=== PATIENT | female | born 1985 | race Caucasian/White ===

== ENCOUNTER 2017-04-20 21:02 | Emergency (ER) | payer OTHER ==
[2017-04-20 21:09] VITALS: BMI 53.6
--- NOTE | 2017-04-20 21:36 | DR.GENAD ---
HPI - PCP Primary Care Physician: nfd - HPI Comment HPI Comment: COUGH IS PRODUCTIVE WITH GREEN SPUTUM. PERSISTENT COUGH CAUSING CHEST WALL PAIN. NO FEVER. HEADACHE AND POST NASAL DRIP PRESENT. NOW NOTICING WHITE PATCHES ON TONGUE AND MOUTH. - Complaint/Symptoms Chief Complaint Doctors Comments: COUGH, COLD CONGESTION TIMES 3 WEEKS. WHITE PATCHES IN MOUTH. Chief Complaint:: congested cough x 3-4 weeks; white patches in mouth; feels pressure in her chest; cough is productive with dark green sputum Self Treatment fo Chief Complaint: Theraflu; Dayquil - Nurses notes reviewed Nurses Notes Review: Yes - Source History Provided: Patient - Mode of Arrival Mode of Arrival: Ambulatory - Timing Onset of Chief Complaint: 04/20/17 Came on: Gradually - Duration Duration: Constant Duration: Days - Severity Severity: Moderate PMH - PMH Past Medical History: Yes Past Medical History: Hypertension Past Surgical History: Yes Past Surgical History Comment: scope of left knee; surgery left wrist - Family History History of Family Medical Conditions: No - Social History Type of Tobacco Use: None Alcohol Use: None Lives With: Family Lives Where: Home - infectious screening In the last 2 months have you had wt loss of >10#?: NO Have you had fever, night sweats or hemotysis?: No Have you traveled outside the country in the last 6 months?: No Isolation: Standard ROS - Review of Systems Constitutional: Weakness, Fatigue, Loss of Appetite. negative: Chills, Fever Eyes: negative: Eye Pain, Discharge ENTM: Nose Discharge, Nose Congestion, Mouth Pain (WHITE PACHES IN MOUTH AND PEDRITO.), Throat Pain. negative: Ear Pain Respiratoy: Productive Cough, Short of Breath. negative: Wheezing, Hemoptysis Cardiovascular: Chest Pain Gastrointestinal/Abdominal: No Symptoms Reported Genitourinary: No Symptoms Reported Neurological: Headache, Weakness, Dizziness Musculoskeletal: Muscle Pain Integumentary: No Symptoms Reported Hematologic/Lymphatic: No Symptoms Reported Endocrine: No Symptoms Reported All Other Systems: Reviewed and Negative PE - Vital Signs Vitals: Temperature 98.3 F Pulse Rate [Left Brachial] 100 Pulse Rate 112 Respiratory Rate 20 Blood Pressure [Left Arm] 150/90 Blood Pressure 172/86 O2 Sat by Pulse Oximetry 95 - General Limitations: No Limitations General Appearance: Alert - Head Head Exam: Normal Inspection - Eyes Eye exam: Normal Appearance - ENT ENT Exam: Normal External Ear Exam External Ear Exam: Normal External Inspection TM/Canal Exam: Bilateral Normal Nose Exam: Normal Nose Exam Mouth Exam: Normal Inspection Throat Exam: Tonsillar Erythema, Other (TONGUE AND MOUTH WITH WHITE PATCHES.). negative: Tonsillomegaly, Tonsillar Exudate - Neck Neck Exam: Trachea Midline - Chest Chest Inspection: Symmetric Chest Wall Rise - Respiratory Respiratory Exam: Normal Lung Sounds Bilat Respiratory Exam: Bilateral Wheezing, Bilateral Rhonchi, Lower Wheezing, Lower Rhonchi - Cardiovascular Cardiovascular Exam: Regular Rate, Normal Rhythm, Normal Heart Sounds - Abdominal Exam Abdominal Exam: Normal Bowel Sounds, Soft. negative: Tenderness - Extremities Extremities Exam: Normal Inspection - Back Back Exam: Normal Inspection - Neurologic Neurological Exam: Alert, Oriented X3, CN II-XII Intact, Normal Gait, Reflexes Normal. negative: Motor Sensory Deficit - Psychiatric Psychiatric Exam: Normal Affect, Normal Mood - Skin Skin Exam: Normal Color MDM - Additional Information Additional Information Obtained From: Family - Differential Diagnosis Differential Diagnosis: BRONCHITIS, PNEUMONIA, SINUSITIS, PHARYNGITIS, FLI Course - Treatment Treatment: SEE ORDERS. - Education/Counseling Education/Counseling: Patient, Family, Education Educated On: Diagnosis, Needs for Follow Up ROR - Labs Reviewed Laboratory Results Reviewed?: Yes Laboratory: Influenza Type A (PCR) Negative (NEGATIVE) 04/20/17 22:10 Influenza Type B (PCR) Negative (NEGATIVE) 04/20/17 22:10 S. pyogenes (TEM-PCR) Not detected (NOT DETECT) 04/20/17 22:10 - XRAY XRAY Interpreted by: Radiologist XRAY Findings: REPORT DISCUSS WITH PATIENT. - Diagnosis Discharge Problem: Bronchitis, Chest wall pain Sinusitis Qualifiers: Sinusitis location: unspecified location Chronicity: acute Recurrence: not specified as recurrent Qualified Code(s): J01.90 - Acute sinusitis, unspecified - Discharge Plan Disposition: HOME, SELF-CARE Condition: Stable Prescriptions: Amoxicillin [Amoxil 875 mg] 875 mg PO Q12H #20 tab Promethazine W/Codeine [PHENERGAN W/CODEINE 6.25mg/10mg (5mL) *] 5 ml PO Q6H PRN #120 ml PRN Reason: Cough - Follow ups/Referrals Follow ups/Referrals: NFD,None [Primary Care Provider] - 3 days - Instructions Instructions: Acute Bronchitis, [id number] Additional Instructions: RETURN TO ED IF WORSE.
--- NOTE | 2017-04-20 22:34 | RAD ---
CHEST RADIOGRAPHS PA AND LATERAL VIEWS CLINICAL HISTORY: 31-year-old female with congestion and cough for 3-4 weeks. COMPARISON: None. FINDINGS: The cardiopericardial silhouette is unremarkable with prominent perihilar lung markings an d peribronchial cuffing. There is no focal consolidation, pleural effusion or pneumothorax. The lungs are well inflated. Pulmonary vascularity is normal. Imaged osseous structures are intact. Soft tissu es are unremarkable. IMPRESSION: Prominent perihilar lung markings with peribronchial cuffing suggestive of bronchitis, correlate for acuity. Reported By:
[2017-04-20] MEDS ORDERED: AMOXIL CAP 500 MG PO ONE (23:54)
[2017-04-20] MEDS ORDERED: PHENERGAN W/CODEINE 6.25MG/10MG PO ONE (23:54)
[2017-04-21] MEDS ORDERED: AMOXIL CAP 500 MG PO ONE (00:04)
[2017-04-21] MEDS ORDERED: PHENERGAN W/CODEINE 6.25MG/10MG ONE ×2 (00:05→00:09)
[2017-04-21 00:29] VITALS: BP 150/90
== END 2017-04-21 00:30 | disposition home or self-care (01) ==
LOC: ER 21:02
DX: J40 Bronchitis, not specified as acute or chronic (principal); R07.89 Other chest pain; J01.80 Other acute sinusitis
CPT/HCPCS: 71046; 87502; 87651; 99283; 99284

== ENCOUNTER 2019-10-05 13:43 | Inpatient (IN) ==
[2019-10-05] MEDS ORDERED: D5 1/2 NS 1000 ML 1,000 ML IV ONE (13:50)
[2019-10-05] MEDS ORDERED: D5 1/2 NS 1000 ML 1,000 ML IV SCH (13:50)
[2019-10-05] MEDS ORDERED: PITOCIN ONE (13:50)
[2019-10-05] MEDS ORDERED: BETADINE SOLN ONE (13:50)
[2019-10-05] MEDS ORDERED: D5 1/2 NS 1L W PITOCIN 20 UNITS/L 20 UNITS/1,000 ML BAG IV ONE (13:51)
[2019-10-05] MEDS ORDERED: D5LR 1L W PITOCIN 10 UNITS/L 10 UNITS/1,000 ML BAG IV ONE (13:51)
[2019-10-05] MEDS ORDERED: MOTRIN TAB 800 MG PO PRN (14:56)
[2019-10-05] MEDS ORDERED: PHENERGAN INJ 25 MG IM PRN (14:56)
[2019-10-05] MEDS ORDERED: D5 1/2 NS 1000 ML 1,000 ML with PITOCIN 20 UNITS IV SCH ×2 (15:00)
[2019-10-05 15:18] LABS: BASOPHILS # (AUTO) 0.1 X10^3/uL (0.0-0.1); BASOPHILS % (AUTO) 0.7 % (0.2-1.0); EOSINOPHILS # (AUTO) 0.1 x10^3/uL (0.0-0.2); EOSINOPHILS % (AUTO) 1.1 % (0.9-2.9); HEMATOCRIT 39.9 % (36.0-47.0); HEMOGLOBIN 13.2 g/dL (12.0-16.0); LYMPHOCYTES # (AUTO) 1.6 X10^3/uL (1.3-2.9); LYMPHOCYTES % (AUTO) 12.7 % (21.0-51.0); MEAN CORPUSCULAR HEMOGLOBIN 28.9 pg (27.0-34.0); MEAN CORPUSCULAR HGB CONC 33.1 g/dL (33.0-35.0); MEAN CORPUSCULAR VOLUME 87.2 fL (80.0-100.0); MEAN PLATELET VOLUME 10.4 fL (7.4-11.0); MONOCYTES # (AUTO) 0.8 x10^3/uL (0.3-0.8); NEUTROPHILS # (AUTO) 10.3 x10^3/uL (2.2-4.8); NEUTROPHILS % (AUTO) 79.5 % (42.0-75.0); PLATELET COUNT 171 X10^3/uL (150.0-450.0); RED BLOOD COUNT 4.58 X10^6/uL (3.5-5.4); RED CELL DISTRIBUTION WIDTH 12.5 % (11.6-16.5)
[2019-10-05 15:27] LABS: BILIRUBIN,URINE 1+ (NEGATIVE); BLOOD/HEMOGLOBIN,URINE 5+ (NEGATIVE); GLUCOSE, URINE NEGATIVE (NEGATIVE); KETONES,URINE 1+ (NEGATIVE); LEUKOCYTE ESTERASE ,URINE 1+ (NEGATIVE); NITRITES,URINE NEGATIVE (NEGATIVE); PROTEIN,URINE 2+ (NEGATIVE); UROBILINOGEN,URINE 2+ (NORMAL)
[2019-10-05] MEDS ORDERED: ADACEL or BOOSTRIX TDaP VACCINE IM ONE (15:31)
[2019-10-05] MEDS ORDERED: MILK OF MAGNESIA PO PRN (15:31)
[2019-10-05] MEDS ORDERED: DERMOPLAST PAIN RELIEF SPRAY TOP PRN (15:31)
[2019-10-05] MEDS ORDERED: AMBIEN PO PRN (15:31)
[2019-10-05 15:33] LABS: APPEARANCE,URINE SLIGHTLY HAZY (CLEAR); COLOR,URINE DARK YELLOW (YELLOW); RBC,URINE TNTC /HPF (0-3)
[2019-10-05 15:34] LABS: BACTERIA,URINE TRACE /HPF (NEGATIVE); MUCUS,URINE MODERATE /HPF (NEGATIVE); SQUAMOUS EPITHELIAL CELL,UR MODERATE /HPF (NEGATIVE)
[2019-10-05 15:49] LABS: BLOOD UREA NITROGEN 12 mg/dL (7-18); CALCIUM 8.1 mg/dL (8.5-10.1); CARBON DIOXIDE 24.4 mmol/L (21-32); CHLORIDE 105 mmol/L (98-107); CREATININE 1.02 mg/dL (0.55-1.02); SODIUM 138 mmol/L (136-145); eGFR NON BLACK RACES > 60 (>60)
[2019-10-05] MEDS ORDERED: APRESOLINE TAB 25 MG ONE (16:29)
[2019-10-05] MEDS: APRESOLINE TAB 25 MG PO SCH ×2 (16:38→21:00)
[2019-10-05] MEDS: PROzac PO SCH (17:23)
[2019-10-05] MEDS: LOPRESSOR TAB 50 MG PO SCH (20:40)
[2019-10-05] MEDS: PEPCID TAB 20 MG PO SCH (20:40)
[2019-10-06 06:23] LABS: HEMATOCRIT 38.2 % (36.0-47.0); HEMOGLOBIN 12.8 g/dL (12.0-16.0)
[2019-10-06] MEDS: APRESOLINE TAB 25 MG PO SCH ×3 (06:32→21:00)
[2019-10-06] MEDS: PEPCID TAB 20 MG PO SCH ×2 (10:02→20:50)
[2019-10-06] MEDS: LOPRESSOR TAB 50 MG PO SCH ×2 (10:02→20:50)
[2019-10-06] MEDS: PRENATAL PLUS PO SCH (10:03)
[2019-10-06] MEDS: PROzac PO SCH (10:03)
[2019-10-07] MEDS: APRESOLINE TAB 25 MG PO SCH ×2 (05:17→15:05)
[2019-10-07] MEDS: PEPCID TAB 20 MG PO SCH (08:45)
[2019-10-07] MEDS: LOPRESSOR TAB 50 MG PO SCH (08:45)
[2019-10-07] MEDS: PROzac PO SCH (08:46)
[2019-10-07] MEDS: PRENATAL PLUS PO SCH (08:46)
[2019-10-07 16:50] VITALS: BP 173/85
== END 2019-10-07 16:10 | disposition home or self-care (01) | DRG 807 ==
LOC: LD 13:43 → MED/SURG 15:42
PROVIDERS: ADMIT Obstetrics & Gynecology Obstetrics; ATTEND Obstetrics & Gynecology Obstetrics
CPT/HCPCS: 36415; 59409; 80048; 80307; 81001; 85014; 85018; 85025; 86592; 86850; 86900; 86901; 90715; A4216; A4222; J2590; S0197; S5010

== ENCOUNTER 2021-12-27 15:38 | Inpatient (IN) ==
[2021-12-27] MEDS ORDERED: LOPRESSOR INJ 5 MG AMP IVP ONE (16:00)
[2021-12-27] MEDS ORDERED: LOPRESSOR INJ 5 MG AMP ONE (16:00)
[2021-12-27] MEDS ORDERED: LASIX IVP ONE ×2 (16:00)
[2021-12-27 16:03] LABS: ABG BASE EXCESS -3.4 mmol/L (-2.0-2.0); ABG HCO3 19.9 mmol/L (22-26)
[2021-12-27 16:13] LABS: BASOPHILS # (AUTO) 0.1 X10^3/uL (0.0-0.1); BASOPHILS % (AUTO) 1.2 % (0.2-1.0); EOSINOPHILS # (AUTO) 0.1 x10^3/uL (0.0-0.2); EOSINOPHILS % (AUTO) 0.7 % (0.9-2.9); HEMATOCRIT 31.2 % (36.0-47.0); HEMOGLOBIN 9.9 g/dL (12.0-16.0); LYMPHOCYTES # (AUTO) 2.2 X10^3/uL (1.3-2.9); LYMPHOCYTES % (AUTO) 21.3 % (21.0-51.0); MEAN CORPUSCULAR HEMOGLOBIN 21.8 pg (27.0-34.0); MEAN CORPUSCULAR HGB CONC 31.6 g/dL (33.0-35.0); MEAN CORPUSCULAR VOLUME 69.1 fL (80.0-100.0); MEAN PLATELET VOLUME 8.6 fL (7.4-11.0); MONOCYTES # (AUTO) 0.7 x10^3/uL (0.3-0.8); MONOCYTES % (AUTO) 7.3 % (0.0-13.0); NEUTROPHILS # (AUTO) 7.1 x10^3/uL (2.2-4.8); NEUTROPHILS % (AUTO) 69.5 % (42.0-75.0); RED BLOOD COUNT 4.51 X10^6/uL (3.5-5.4); RED CELL DISTRIBUTION WIDTH 20.7 % (11.6-16.5); WHITE BLOOD COUNT 10.2 X10^3/uL (3.6-10.0)
[2021-12-27 16:22] LABS: ANISOCYTOSIS 1+; MICROCYTOSIS 1+; PLATELET MORPHOLOGY COMMENT NORMAL (NORMAL)
--- NOTE | 2021-12-27 16:27 | DR.SOBA ---
HPI Time Seen Time Seen by Provider: 12/27/21 16:27 Primary Care Physician Primary Care Physician: ANGI HPI Comment HPI Comment: A 36 y/o female presenting via EMS with c/o worsening SOB today. She has no associated chest pain. SHe states that she is swollen and has not urinated much today. She had a PTCA about 2 weeks ago after an M.I. She was placed on ASA, Plavix, Eliquis, Metoprolol. But she has not filled these scripts yet but took 2 baby ASA this a.m. Her SOB ans ability to do things around the house has worsened since she came home from her M.I. care and placement of the heart stents. She is s/p AKA and has had DVT in the RLE leading to the amputation ultimately. Complaints Chief Complaint:: PT C/O SUDDEN ONSET OF SEVERE SHORTNESS OF BREATH THAT HAS PROGRESSIVELY WORSENED SINCE THIS MORNING AND IS ASSOCIATED WITH GENERALIZED SWELLING AND DIARRHEA. DENIES PAIN. COVID-19 Coronavirus risk:travel/contact w/high risk person: No Has patient experienced Coronavirus symptoms: No Reviewed Nurses Notes Reviewed: Yes Source History Provided: Patient Mode of Arrival Mode of Arrival: EMS Timing Onset of Chief Complaint: 12/27/21 Context Onset:: At Rest Currently on:: Neither Prehospital Care:: O2 Modifying Factors Worsens:: Lying Flat and Anxiety Improves:: Sitting Up Associated Signs and Symptoms Associated Signs and Symptoms: None PMH PMH Past Medical History: Yes Past Medical History: Coronary Artery Disease, Hypertension and [place] Past Medical History Comment: DVT Past Surgical History: Yes Surgical History: Angioplasty/Stents Past Surgical History Comment: RIGHT AKA Family History History of Family Medical Conditions: Yes Family Medical History: [place], Coronary Artery Disease and Hypertension Family Medical History Comment: CKD Social History Does patient currently use any type of tobacco product: Yes Have you used tobacco products in the last 12 months: Yes Type of Tobacco Use: Cigarettes Does any household member use tobacco: No Alcohol Use: None Do you use any recreational Drugs:: No Lives With: Family Lives Where: Home Travel Risk Coronavirus risk:travel/contact w/high risk person: No Has patient experienced Coronavirus symptoms: No Infectious screening In the last 2 months have you had wt loss of >10#?: NO Have you had fever, night sweats or hemotysis?: No Have you traveled outside the country in the last 6 months?: No Isolation: Standard ROS Review of Systems Constitutional: No Symptoms Reported Eyes: No Symptoms Reported ENTM: No Symptoms Reported Respiratoy: Short of Breath Cardiovascular: No Symptoms Reported Gastrointestinal/Abdominal: No Symptoms Reported Genitourinary: No Symptoms Reported Neurological: No Symptoms Reported Musculoskeletal: No Symptoms Reported Integumentary: No Symptoms Reported Hematologic/Lymphatic: No Symptoms Reported Endocrine: No Symptoms Reported Psychiatric: No Symptoms Reported All Other Systems: Reviewed and Negative PE Vital Signs Vitals: Temperature 97.9 F Pulse Rate 120 Respiratory Rate 33 Blood Pressure [Left Arm] 148/65 Blood Pressure 130/84 O2 Sat by Pulse Oximetry 100 General Limitations: No Limitations General Appearance: Alert, In No Apparent Distress, Anxious and Obese Head Head Exam: Normal Inspection, Atraumatic and Normocephalic Eyes Eye exam: Normal Appearance and EOMI ENT ENT Exam: Normal Exam, Normal Oropharynx, Normal External Ear Exam and Mucous Membranes Moist Neck Neck Exam: Normal Inspection, Full ROM and Trachea Midline Chest Chest Inspection: Normal Inspection and Symmetric Chest Wall Rise Respiratory Respiratory Exam: Normal Lung Sounds Bilat and Other (Tachypneic) Cardiovascular Cardiovascular Exam: Normal Rhythm, Tachycardia, Normal Heart Sounds, +S1 and +S2 Abdominal Exam Abdominal Exam: Normal Inspection, Normal Bowel Sounds and Soft Extremities Extremities Exam: Other (s/p Rt. AKA) Back Back Exam: Normal Inspection and Full ROM Neurologic Neurological Exam: Alert and Oriented X3 Psychiatric Psychiatric Exam: Normal Affect and Normal Mood Skin Skin Exam: Dry, Intact and Normal Color COURSE Treatment Treatment: Her test findings were reviewed with her. She had been given 40 mg of IV Lasix and u/o so far is > 2,000 ml. She feels beter now. I reviewed her presentation and findings with Dr. Moser, who agreed with admission here for management. Reevaluation 1st: Improved Consultation Consultation Comments: Name: CLIFF RUBIO [facility]#: [id number]: [id number]: [id number]: FLocation: EROrder Number(s): [id number](s):CHEST, 1 VIEW Ordering Physician: MOLLY VILLASEÑOR Primary Care: Zane WHITLEY Service Date: 12/27/21 Service Time: 1544 HISTORY Relevant Clinical Information chest pain STUDY CHEST, 1 VIEW COMPARISON December 19, 2021 FINDINGS The trachea is midline. The cardiac silhouette is unremarkable. The lungs demonstrate persistent pneumonia in the right mid lower lung zones similar to prior. The bony thorax is unremarkable. IMPRESSION Persistent multifocal right-sided pneumonia Electronically signed by: CAMRYN OGLESBY (Dec 27, 2021 17:19:23) Report Electronically signed: 12/27/21 1720 CC: Molly Villaseñor Education/Counseling Education/Counseling: Patient, Family, Education and Counseling Educated On: Treatment, Diagnosis, Prognosis and Needs for Follow Up ROR Labs Reviewed Laboratory Results Reviewed?: Yes Result Diagrams: 12/27/21 16:00 12/27/21 16:00 Laboratory: WBC 10.2 X10^3/uL (3.6-10.0) H 12/27/21 16:00 RBC 4.51 X10^6/uL (3.5-5.4) 12/27/21 16:00 Hgb 9.9 g/dL (12.0-16.0) L 12/27/21 16:00 Hct 31.2 % (36.0-47.0) L 12/27/21 16:00 MCV 69.1 fL (80.0-100.0) L 12/27/21 16:00 MCH 21.8 pg (27.0-34.0) L 12/27/21 16:00 MCHC 31.6 g/dL (33.0-35.0) L 12/27/21 16:00 RDW 20.7 % (11.6-16.5) H 12/27/21 16:00 Plt Count 347 X10^3/uL (150.0-450.0) 12/27/21 16:00 Plt Count Comment Adequate (ADEQUATE) 12/27/21 16:00 MPV 8.6 fL (7.4-11.0) 12/27/21 16:00 Neut % (Auto) 69.5 % (42.0-75.0) 12/27/21 16:00 Lymph % (Auto) 21.3 % (21.0-51.0) 12/27/21 16:00 [place] % (Auto) 7.3 % (0.0-13.0) 12/27/21 16:00 Eos % (Auto) 0.7 % (0.9-2.9) L 12/27/21 16:00 Baso % (Auto) 1.2 % (0.2-1.0) H 12/27/21 16:00 Neut # (Auto) 7.1 x10^3/uL (2.2-4.8) H 12/27/21 16:00 Lymph # (Auto) 2.2 X10^3/uL (1.3-2.9) 12/27/21 16:00 [place] # (Auto) 0.7 x10^3/uL (0.3-0.8) 12/27/21 16:00 Eos # (Auto) 0.1 x10^3/uL (0.0-0.2) 12/27/21 16:00 Baso # (Auto) 0.1 X10^3/uL (0.0-0.1) 12/27/21 16:00 Absolute Nucleated RBC 0.2 /100WBC 12/27/21 16:00 Total Counted Cancelled 12/27/21 16:00 Neutrophils % (Manual) Cancelled 12/27/21 16:00 Band Neutrophils % Cancelled 12/27/21 16:00 Lymphocytes % (Manual) Cancelled 12/27/21 16:00 Monocytes % (Manual) Cancelled 12/27/21 16:00 Eosinophils % (Manual) Cancelled 12/27/21 16:00 Basophils % (Manual) Cancelled 12/27/21 16:00 Metamyelocytes % Cancelled 12/27/21 16:00 Myelocytes % Cancelled 12/27/21 16:00 Promyelocytes % Cancelled 12/27/21 16:00 Plt Morphology Comment Normal (NORMAL) 12/27/21 16:00 RBC Morphology Abnormal (NORMAL) A 12/27/21 16:00 Anisocytosis 1+ A 12/27/21 16:00 Microcytosis 1+ A 12/27/21 16:00 D-Dimer 9.11 ug/ml (0.0-0.57) H 12/27/21 16:00 Sample Site Rbra 12/27/21 15:58 ABG pH 7.430 (7.35-7.45) 12/27/21 15:58 ABG pCO2 30.0 mmHg (35.0-45.0) L 12/27/21 15:58 ABG pO2 72.0 mmHg (80.0-100.0) L 12/27/21 15:58 ABG HCO3 19.9 mmol/L (22-26) L 12/27/21 15:58 ABG O2 Saturation 95.0 % (90-100) 12/27/21 15:58 ABG Base Excess -3.4 mmol/L (-2.0-2.0) L 12/27/21 15:58 Nav Test N/a 12/27/21 15:58 A-a Gradient 176.0 mmHg 12/27/21 15:58 FiO2 40.0 12/27/21 15:58 Blood Gas Comments Pt min well eb 12/27/21 15:58 Sodium 141 mmol/L (136-145) 12/27/21 16:00 Corrected Sodium 142 mmol/L (136-145) 12/27/21 16:00 Potassium 4.5 mmol/L (3.5-5.1) 12/27/21 16:00 Chloride 107 mmol/L (98-107) 12/27/21 16:00 Carbon Dioxide 24.3 mmol/L (21-32) 12/27/21 16:00 BUN 22 mg/dL (7-18) H 12/27/21 16:00 Creatinine 1.27 mg/dL (0.55-1.02) H 12/27/21 16:00 Est GFR (MDRD) Af Amer > 60 (>60) 12/27/21 16:00 Est GFR (MDRD) Non-Af 50 (>60) L 12/27/21 16:00 Glucose 121 mg/dL (65-99) H 12/27/21 16:00 Lactic Acid 4.2 mmol/L (0.4-2.0) H 12/27/21 16:24 Calcium 8.1 mg/dL (8.5-10.1) L 12/27/21 16:00 Corrected Calcium 9.1 mg/dL (8.5-10.1) 12/27/21 16:00 Total Bilirubin 0.90 mg/dL (0.2-1.0) 12/27/21 16:00 AST 31 Units/L (15-37) 12/27/21 16:00 ALT 29 Units/L (12-78) 12/27/21 16:00 Alkaline Phosphatase 101 Units/L (46-116) 12/27/21 16:00 Creatine Kinase 269 Units/L (26-192) H 12/27/21 16:24 Troponin I High Sens 914.2 ng/L (4.0-60.0) H* 12/27/21 16:00 B-Natriuretic Peptide 1530 pg/mL (0-79) H* 12/27/21 16:00 Total Protein 6.0 g/dL (6.4-8.2) L 12/27/21 16:00 Albumin 2.7 g/dL (3.4-5.0) L 12/27/21 16:00 Globulin 3.3 g/dL (2.5-4.5) 12/27/21 16:00 Albumin/Globulin Ratio 0.8 Ratio (1.1-2.1) L 12/27/21 16:00 Specimen Type Catherized urine 12/27/21 16:19 Urine Color Yellow (YELLOW) 12/27/21 16:19 Urine Appearance Hazy (CLEAR) 12/27/21 16:19 Urine pH 5.0 (5.0 - 8.0) 12/27/21 16:19 Ur Specific [place] 1.030 (1.000-1.030) 12/27/21 16:19 Urine Protein 4+ (NEGATIVE) 12/27/21 16:19 Urine Glucose (UA) Negative (NEGATIVE) 12/27/21 16:19 Urine Ketones 1+ (NEGATIVE) 12/27/21 16:19 Urine Blood 2+ (NEGATIVE) 12/27/21 16:19 Urine Nitrite Negative (NEGATIVE) 12/27/21 16:19 Urine Bilirubin Negative (NEGATIVE) 12/27/21 16:19 Urine Urobilinogen 1+ (NORMAL) 12/27/21 16:19 Ur Leukocyte Esterase Negative (NEGATIVE) 12/27/21 16:19 Urine RBC 0-2 /HPF (0-3) 12/27/21 16:19 Urine WBC 3-5 /HPF (0-5) 12/27/21 16:19 Ur Squamous Epith Cells Rare /HPF (NEGATIVE) 12/27/21 16:19 Urine Bacteria 1+ /HPF (NEGATIVE) 12/27/21 16:19 Hyaline Casts Rare /LPF (NEGATIVE) 12/27/21 16:19 Granular Casts Few /LPF (NEGATIVE) 12/27/21 16:19 Urine Mucus Moderate /HPF (NEGATIVE) 12/27/21 16:19 Ur Culture Indicated? No/not indicated 12/27/21 16:19 Urine Opiates Screen Negative (NEG=<300) 12/27/21 16:19 Urine Methadone Screen Negative (NEG=<300) 12/27/21 16:19 Ur Barbiturates Screen Negative (NEG=<200) 12/27/21 16:19 Ur Phencyclidine Scrn Negative (NEG=<25) 12/27/21 16:19 Ur Amphetamines Screen Positive (NEG=<1000) A 12/27/21 16:19 U Benzodiazepines Scrn Negative (NEG=<200) 12/27/21 16:19 Urine Cocaine Screen Negative (NEG=<300) 12/27/21 16:19 U Marijuana (THC) Screen Negative (NEG=<50) 12/27/21 16:19 XRAY XRAY Interpreted by: Self X-ray Results: CXR: Cardiomegaly with vascular congestion. Radiology report is pending. EKG Rate: 131 [place]: Normal Rhythm: ST and PVCs Block: None Hypertrophy: LAE and RVH Opioid Opioid Risk Tool Age ([place] if 16-45): Yes History of Preadolescent Sexual Abuse: No Total: 1 Total Score Risk Category: Low Risk Copyright: Saurabh JHA predicting aberrant behaviors Discharge Plan Diagnosis Discharge Problem: Decompensated heart failure, Lactic acid blood increased, Non compliance w medication regimen CAD (coronary artery disease) Qualifiers: Coronary Disease-Associated Artery/Lesion type: [place] artery [place] vs. transplanted heart: tribal heart Associated angina: without angina Qualified Code(s): I25.10 - Atherosclerotic heart disease of tribal coronary artery without angina pectoris ST elevation [place] (STEMI) Qualifiers: Involved coronary artery: unspecified coronary artery Qualified Code(s): I21.3 - ST elevation (STEMI) myocardial infarction of unspecified site Discharge Plan Patient Disposition: 09 ADMITTED INPATIENT Condition: Stable Health Concerns: Post Hospitalization: new medications and changes needed to prevent readmission or further decline. Pt educated and given instructions on all concerns. Plan of Treatment: Continue with present treatment and follow up plan. Pt is to keep follow up appointment as instructed and take medications as ordered. Orders to Discharge Patient Discharge Orders: Transfer (Routine); Ordered 12/27/21 Ordered By: MOLLY SOBOWADANG Follow ups/Referrals Follow ups/Referrals: NFD,None [Primary Care Provider] - 3 days
[2021-12-27 16:33] LABS: BILIRUBIN,URINE NEGATIVE (NEGATIVE); BLOOD/HEMOGLOBIN,URINE 2+ (NEGATIVE); GLUCOSE, URINE NEGATIVE (NEGATIVE); KETONES,URINE 1+ (NEGATIVE); LEUKOCYTE ESTERASE ,URINE NEGATIVE (NEGATIVE); NITRITES,URINE NEGATIVE (NEGATIVE); PROTEIN,URINE 4+ (NEGATIVE); UROBILINOGEN,URINE 1+ (NORMAL)
[2021-12-27 16:38] LABS: ALANINE AMINOTRANSFERASE 29 Units/L (12-78); ALBUMIN 2.7 g/dL (3.4-5.0); ALKALINE PHOSPHATASE 101 Units/L (46-116); ASPARTATE AMINO TRANSFERASE 31 Units/L (15-37); BLOOD UREA NITROGEN 22 mg/dL (7-18); CALCIUM 8.1 mg/dL (8.5-10.1); CARBON DIOXIDE 24.3 mmol/L (21-32); CHLORIDE 107 mmol/L (98-107); COR CA(FOR HYPOALB) 9.1 mg/dL (8.5-10.1); COR NA(FOR HYPERGLY) 142 mmol/L (136-145); CREATININE 1.27 mg/dL (0.55-1.02); SODIUM 141 mmol/L (136-145); eGFR NON BLACK RACES 50 (>60)
[2021-12-27] MEDS ORDERED: XOPENEX 1.25 MG/3 ML NEBULE NEB ONE ×2 (16:45)
[2021-12-27 16:48] LABS: APPEARANCE,URINE HAZY (CLEAR); BACTERIA,URINE 1+ /HPF (NEGATIVE); COLOR,URINE YELLOW (YELLOW); GRANULAR CASTS,URINE FEW /LPF (NEGATIVE); HYALINE CASTS, URINE RARE /LPF (NEGATIVE); RBC,URINE 0-2 /HPF (0-3); SQUAMOUS EPITHELIAL CELL,UR RARE /HPF (NEGATIVE)
[2021-12-27] MEDS ORDERED: NS 100 ML IV 100 ML ONE ×2 (16:51→18:21)
[2021-12-27] MEDS ORDERED: ATIVAN INJ 2 MG VIAL ONE (16:58)
[2021-12-27] MEDS ORDERED: ATIVAN INJ 2 MG VIAL IVP ONE (17:05)
--- NOTE | 2021-12-27 17:20 | RAD ---
HISTORYRelevant Clinical Information chest painSTUDYCHEST, 1 VIEWCOMPARISONOctober 2021FINDINGSThe trachea is midline. The cardiac silhouette is unremarkable. The lungs demonstrate persistent pneumonia in the right mid lower lung zones similar to prior. The bony thorax is unremarkable.IMPRESSIONPersistent multifocal right-sided pneumoniaElectronically signed by: CAMRYN OGLESBY (Dec 27, 2021 17:19:23)
[2021-12-27] MEDS ORDERED: ZOSYN VIAL 3.375 GRAMS 3.375 G in NS 100 ML IV 100 ML IV ONE (18:07)
--- NOTE | 2021-12-27 18:16 | CT ---
HISTORYelevated d-dimer, shortness of breath, tachycardia.brSTUDYCTA CHESTCOMPARISONNoneTECHNIQUEMultiple axial images of the chest were obtained from the thoracic inlet to the upper abdomen after the administration of IV contrast. 3D reconstructions utilizing axial MIPS imaging was performed and reviewed. Dose reduction techniques including Automated Exposure Control (AEC) and adjustment of mA and kV were utilized.FINDINGSThe mediastinum does not demonstrate significant pathological lymphadenopathy. There is no pericardial effusion observed. The thoracic aorta is normal in its contour without evidence for aneurysmal dilatation. The central pulmonary arterial system does not demonstrate central filling defects to suggest pulmonary emboli.Evaluation of the lung parenchyma demonstrates layering bilateral effusions right greater than left with ground-glass opacities throughout both lungs. The heart is mildly enlarged these findings may be on the basis of CHF although atypical pneumonia could give a similar appearance. Clinical correlation with be needed. No pulmonary nodule or mass can be identified. The bony thorax is unremarkable in its appearance . The visualized portions of the upper abdomen are grossly unremarkable .IMPRESSIONBilateral layering effusion with scattered ground-glass opacities throughout both lungs with mild cardiomegaly. These findings may be on the basis of CHF although atypical pneumonia could give a similar appearance. Clinical correlation will be needed. There is no evidence for pulmonary embolus.Electronically signed by: CAMRYN OGLESBY (Dec 27, 2021 18:14:54)
[2021-12-27] MEDS ORDERED: ZOSYN VIAL 3.375 GRAMS IV ONE (18:21)
[2021-12-27] MEDS: ZOSYN VIAL 3.375 GRAMS 3.375 G in NS 100 ML IV 100 ML IV SCH ×2 (21:11→21:18)
[2021-12-27] MEDS ORDERED: KLONOPIN TAB 0.5 MG PO PRN (21:20)
[2021-12-27 21:46] VITALS: BMI 50.8
[2021-12-27] MEDS: ELIQUIS PO SCH (22:05)
[2021-12-28] MEDS: LOPRESSOR TAB 25 MG PO SCH ×2 (00:14→09:39)
[2021-12-28] MEDS: ZOSYN VIAL 3.375 GRAMS 3.375 G in NS 100 ML IV 100 ML IV SCH (05:00)
[2021-12-28 05:01] LABS: BASOPHILS # (AUTO) 0.1 X10^3/uL (0.0-0.1); BASOPHILS % (AUTO) 0.9 % (0.2-1.0); EOSINOPHILS # (AUTO) 0.1 x10^3/uL (0.0-0.2); HEMATOCRIT 30.4 % (36.0-47.0); HEMOGLOBIN 9.3 g/dL (12.0-16.0); LYMPHOCYTES # (AUTO) 2.2 X10^3/uL (1.3-2.9); LYMPHOCYTES % (AUTO) 19.7 % (21.0-51.0); MEAN CORPUSCULAR HEMOGLOBIN 20.9 pg (27.0-34.0); MEAN CORPUSCULAR HGB CONC 30.7 g/dL (33.0-35.0); MEAN CORPUSCULAR VOLUME 68.2 fL (80.0-100.0); MEAN PLATELET VOLUME 9.2 fL (7.4-11.0); MONOCYTES % (AUTO) 8.8 % (0.0-13.0); NEUTROPHILS # (AUTO) 7.8 x10^3/uL (2.2-4.8); NEUTROPHILS % (AUTO) 69.6 % (42.0-75.0); RED BLOOD COUNT 4.45 X10^6/uL (3.5-5.4); RED CELL DISTRIBUTION WIDTH 20.3 % (11.6-16.5); WHITE BLOOD COUNT 11.2 X10^3/uL (3.6-10.0)
[2021-12-28] MEDS ORDERED: SALINE 3% 15 ML NEB TX ONE (05:07)
[2021-12-28 05:20] LABS: ANISOCYTOSIS 1+; HYPOCHROMASIA 2+; MICROCYTOSIS 1+; PLATELET MORPHOLOGY COMMENT NORMAL (NORMAL)
[2021-12-28 05:31] LABS: ALBUMIN 2.5 g/dL (3.4-5.0); CALCIUM 7.8 mg/dL (8.5-10.1); CARBON DIOXIDE 25.7 mmol/L (21-32); CREATININE 1.37 mg/dL (0.55-1.02); TOTAL PROTEIN 5.8 g/dL (6.4-8.2)
[2021-12-28] MEDS ORDERED: PLAVIX PO SCH (09:00)
[2021-12-28] MEDS ORDERED: XOPENEX 1.25 MG/3 ML NEBULE NEB PRN (09:00)
[2021-12-28] MEDS ORDERED: ASPIRIN EC 81 MG PO SCH (09:00)
[2021-12-28] MEDS ORDERED: PROTONIX TAB 40 MG PO SCH (09:00)
[2021-12-28] MEDS ORDERED: LASIX PO SCH (09:00)
[2021-12-28 09:30] LABS: INR 1.43 (0.8-1.3)
[2021-12-28] MEDS: ELIQUIS PO SCH (09:38)
[2021-12-28 10:57] VITALS: BP 158/88
--- NOTE | 2021-12-28 11:54 | DR.H&P ---
H&P - History & Physical for Day of: H&P Date: 12/27/21 - Chief Complaint Chief Complaint: SOB, CHEST TIGHTNESS - History of Present Illness History of Present Illness: PT IS 36 WF ER ADMISSION AFTER PRESENTING WITH CO CHEST TIGHTNESS AND SOB WITH INCREASED "WATER RETENTION" PT REPORTS PMH OF PCI X1 STENT PER DR WILSON AT [facility] IN [place]. PT ALSO HAS PMH OF DVTS AND WITH R AKA August AT [facility]. PT IS A SMOKER AND REPORTS NON COMPLIANCE WITH MEDICATION REGIMEN. PT ADMITTED FOR TREATMENT AND EVALUATION OF ACUTE ILLNESS. - Past Medical History Past Medical History: [place], Coronary Artery Disease, Hypertension Additional Medical History: DVT, OBESITY, ILLICIT DRUG USE - Past Surgical History Surgical History: Angioplasty/Stents, Ortho Surgery, Other - Family History Family Medical History: [place], Coronary Artery Disease, Hypertension - Social History Does patient currently use any type of tobacco product: Yes Have you used tobacco products in the last 12 months: Yes Type of Tobacco Use: Cigarettes Does any household member use tobacco: No Alcohol Use: None Drug Use: Methamphetamine, Marijuana - Medications Home Medications: No Known Drug Allergies Allergy (Unverified 04/20/17 21:04) - Review of Systems Constitutional: Malaise Eyes: No Symptoms Reported ENT: No Symptoms Reported Respiratory: Shortness of Breath Cardiovascular: Chest Pain, Edema Gastrointestinal: denies: Nausea, Vomiting, Diarrhea Genitourinary: No Symptoms Reported, Other (CURRENTLY ON MENSTRUAL CYCLE) Musculoskeletal: No Symptoms Reported Skin: No Symptoms Reported Neurological: No Symptoms Reported - Physical Exam Vital Signs: Temperature 98.3 F Pulse Rate 106 Respiratory Rate 22 Blood Pressure [Left Arm] 148/65 Blood Pressure 158/88 O2 Sat by Pulse Oximetry 96 Oriented: Normal Eyes: Normal Ear: Normal Nose: Normal Throat: Normal Respiratory: RML Diminished, RLL Diminished, LML Diminished, LLL Diminished Cardiovascular: Tachycardia, Edema : Normal Auscultation: Bowel Sounds: Normal Palpation: Normal Tenderness: Normal Skin: Normal Musculoskeletal: Right, Deformity (RAKA) Psychiatric: Anxiety Affect: Anxious Speech Pattern: Clear, Appropriate - Assessment/Plan (1) SOB (shortness of breath) Status: Acute Plan: ADMIT, SERIAL CE AND EKG. BP CONTROL AND CONTINUOUS CARDIAC MONITORING. PRAKASH CATH WITH STRICT I&OS. RESUME ELIQUIS, PLAVIX, STATIN AND METOPROLOL. CTA CHEST PERFORMED IN ER ON ADMISSION, IV LASIX. SUPPLEMENTAL O2 (2) Abnormal cardiac enzyme level Status: Acute (3) CAD (coronary artery disease) Qualifiers: Coronary Disease-Associated Artery/Lesion type: [place] artery [place] vs. transplanted heart: [place] heart Associated angina: without angina Qualified Code(s): I25.10 - Atherosclerotic heart disease of [place] coronary artery wi thout angina pectoris Status: Acute (4) CHF (congestive heart failure) Status: Acute (5) History of DVT (deep vein thrombosis) Status: Acute (6) Hypertension Status: Acute (7) Morbid obesity Status: Acute (8) Hyperlipidemia Status: Acute (9) Drug use Status: Acute (10) Lactic acid blood increased Status: Acute - Allergies Allergies/Adverse Reactions: Allergies Allergy/AdvReac Type Severity Reaction Status Date / Time No Known Drug Allergies Allergy Unverified 04/20/17 21:04
--- NOTE | 2021-12-28 13:07 | RAD ---
HISTORYDECOMMPENSATED CHFSTUDYCHEST, 1 [id number]/2022FINDINGSVenous congestion is unchanged. Subpleural edema seen in the minor fissure. Abnormal opacity in the lung bases, right side more than left; but the findings have decreased since yesterday. This may represent congestive heart failure.Cardiomegaly is unchanged.Bones are unremarkable. [EKG leads are noted. ]IMPRESSION1. Improved CHFElectronically signed by: Josh Sampson (Dec 28, 2021 13:06:20)
== END 2021-12-28 12:09 | disposition short-term general hospital (02) | DRG 193 ==
LOC: ER 15:38 → ICU 21:07
PROVIDERS: ADMIT Internal Medicine; ATTEND Internal Medicine
DX: R77.8 Other specified abnormalities of plasma proteins; Z91.14 Patient's other noncompliance with medication regimen; I21.3 ST elevation (STEMI) myocardial infarction of unspecified site; I11.0 Hypertensive heart disease with heart failure; R06.02 Shortness of breath; R94.31 Abnormal electrocardiogram [ECG] [EKG]; F15.90 Other stimulant use, unspecified, uncomplicated; R07.89 Other chest pain; I25.10 Atherosclerotic heart disease of native coronary artery without angina pectoris; Z89.611 Acquired absence of right leg above knee; E78.2 Mixed hyperlipidemia; Z86.718 Personal history of other venous thrombosis and embolism; Z72.0 Tobacco use; E66.01 Morbid (severe) obesity due to excess calories; J18.8 Other pneumonia, unspecified organism; I50.9 Heart failure, unspecified; R74.02 Elevation of levels of lactic acid dehydrogenase [LDH]